=== PATIENT | male | born 1995 | race Caucasian/White ===

== ENCOUNTER 2017-03-09 21:38 | Emergency (ER) | payer OTHER ==
[2017-03-09] MEDS ORDERED: Ibuprofen TAB* 600 MG PO ONE (22:59)
[2017-03-09] MEDS ORDERED: Acetaminophen TAB* 325 MG PO ONE (22:59)
--- NOTE | 2017-03-09 23:30 | UC ---
HPI Febrile Illness - HPI Summary HPI Summary: Today he spiked a fever of 104. Tylenol did help. He has no specific concurrant symptoms such as Sore throat, cough, rash, abd pain, urinary complaints, headache. - History of Current Complaint Chief Complaint: UCGeneralIllness Time Seen by Provider: 03/09/17 22:59 Hx Obtained From: Patient Onset/Duration: Started Hours Ago Timing: Constant, Lasting Hours Initial Severity: Moderate Current Severity: Mild Aggravating Factors: Nothing Alleviating Factors: OTC Medicine Associated Signs and Symptoms: Chills, Myalgia - Allergy/Home Medications Allergies/Adverse Reactions: Allergies Allergy/AdvReac Type Severity Reaction Status Date / Time No Known Allergies Allergy Verified 03/09/17 22:20 Home Medications: Home Medications NK [No Home Medications Reported] 03/09/17 [History Confirmed 03/09/17] PMH/Surg Hx/FS Hx/Imm Hx Previously Healthy: No - Prior mono. - Surgical History Surgical History: None - Social History Occupation: Student Alcohol Use: None Substance Use Type: None Smoking Status (MU): Never Smoked Tobacco Review of Systems Constitutional: Fever Musculoskeletal: Myalgia All Other Systems Reviewed And Are Negative: Yes Physical Exam Triage Information Reviewed: Yes Appearance: Well-Appearing, No Pain Distress, Well-Nourished Vital Signs: Initial Vital Signs Temp 99.1 F 03/09/17 22:16 Pulse 93 03/09/17 22:16 Resp 16 03/09/17 22:16 BP 110/60 03/09/17 22:16 Pulse Ox 99 03/09/17 22:16 Vital Signs Reviewed: Yes Eyes: Positive: Conjunctiva Clear ENT: Positive: Pharynx normal, Pharyngeal erythema, TMs normal. Negative: Nasal congestion, Nasal drainage, TM bulging, TM dull, TM red, Tonsillar swelling, Tonsillar exudate, Trismus Neck: Positive: Supple, Nontender, No Lymphadenopathy Respiratory: Positive: Chest non-tender, Lungs clear, Normal breath sounds, No respiratory distress, No accessory muscle use. Negative: Respiratory distress, Decreased breath sounds, Accessory muscle use, Crackles, Rhonchi, Stridor, Wheezing Cardiovascular: Positive: RRR, No Murmur, Pulses Normal, Brisk Capillary Refill Abdomen Description: Positive: Nontender, No Organomegaly, Soft. Negative: Hepatomegaly Musculoskeletal: Positive: Strength Intact, ROM Intact, No Edema Neurological: Positive: Alert, Muscle Tone Normal. Negative: Fatigued Skin: Negative: rashes Course/Dx - Course Course Of Treatment: Febrile illness without any specific complaints that would suggest any particular syndrome. No posterior nodes or sore throat to suggest mono. No urinary symptoms. Influenze has not become prevelant yet. He appears quite well and non toxic. He agrees to f/u at [facility] in the next 1-2 days. He will return for any new complaints. - Diagnoses Clinic Provider Diagnoses: viral illness. febrile illness. Discharge - Discharge Plan Condition: Good Disposition: HOME Patient Education Materials: Fever in Adults (ED) Referrals: Non Staff,Doctor [Primary Care Provider] - Additional Instructions: Follow up with [facility] in the next 1-2 days for possible mono testing if indicated.
== END 2017-03-09 23:37 | disposition home or self-care (01) ==
LOC: UCCORT 21:38
DX: B34.9 Viral infection, unspecified (principal)
CPT/HCPCS: 99201; A9270-GY; G0463